=== PATIENT | female | born 1965 | race Caucasian/White ===

== ENCOUNTER → 2020-06-05 | Outpatient (CLI) | payer MEDICARE ==
[~2020-06-05] MED LIST: LIPITOR TAB 2020 MG PO; PROZAC10 MG PO; VALIUM 5 MG TAB5 MG PO; VITAMIN D350000 UNIT PO
== END ==
LOC: KOH-I 14:52
DX: S89.91XA Unspecified injury of right lower leg, initial encounter (principal); W19.XXXA Unspecified fall, initial encounter
CPT/HCPCS: 73564

== ENCOUNTER → 2020-10-29 | Outpatient (CLI) | payer MEDICARE | LOC: KOH-I 12:33 | DX: M47.26 Other spondylosis with radiculopathy, lumbar region (principal) | CPT/HCPCS: 72110 ==

== ENCOUNTER → 2021-11-27 | Outpatient (CLI) | payer MEDICARE | LOC: LAB 15:31 | DX: U07.1 COVID-19 (principal) | CPT/HCPCS: U0002 ==

== ENCOUNTER 2021-12-16 05:23 | Emergency (ER) | payer MEDICARE ==
[2021-12-16 06:25] LABS: HEMOGLOBIN 15.3 gm/dl (12.3-15.3); RED BLOOD COUNT 4.71 M/UL (4.00-5.10); WHITE BLOOD COUNT 10.8 K/UL (4.5-11.0)
[2021-12-16 06:48] LABS: BUN/CREATININE RATIO 24 (0-10)
[2021-12-16] MEDS ORDERED: PROTONIX40 MG PO (09:37)
== END 2021-12-16 09:50 | disposition home or self-care (01) ==
LOC: ER1 05:23
PROVIDERS: Physician Assistant
DX: R91.1 Solitary pulmonary nodule (principal); R10.13 Epigastric pain; K21.9 Gastro-esophageal reflux disease without esophagitis; E78.5 Hyperlipidemia, unspecified; J45.909 Unspecified asthma, uncomplicated; Z88.2 Allergy status to sulfonamides; F17.200 Nicotine dependence, unspecified, uncomplicated
CPT/HCPCS: 80053; 81001; 82550; 82553; 83690; 84484; 85025; 93005; 96374; 99284; C9113; Q9967